=== PATIENT | female | born 1980 | race Caucasian/White ===

== ENCOUNTER 2017-11-01 19:36 | Emergency (ER) | payer SELFPAY | END 2017-11-01 21:29 | disposition left against medical advice (07) | LOC: ERS 19:36 | DX: Z53.21 Procedure and treatment not carried out due to patient leaving prior to being seen by health care provider (principal) ==

== ENCOUNTER 2017-11-14 11:02 | Emergency (ER) | payer SELFPAY | END 2017-11-14 12:06 | disposition home or self-care (01) | LOC: ERS 11:02 | DX: L30.9 Dermatitis, unspecified (principal); J45.909 Unspecified asthma, uncomplicated; F17.210 Nicotine dependence, cigarettes, uncomplicated | CPT/HCPCS: 99282 ==

== ENCOUNTER 2019-08-31 09:31 | Emergency (ER) | payer SELFPAY | END 2019-08-31 18:34 | disposition home or self-care (01) | LOC: ERS 09:31 | DX: M72.2 Plantar fascial fibromatosis (principal); J45.909 Unspecified asthma, uncomplicated; F17.210 Nicotine dependence, cigarettes, uncomplicated | CPT/HCPCS: 99283 ==

== ENCOUNTER 2019-09-24 20:49 | Emergency (ER) | payer SELFPAY ==
[2019-09-24] MEDS ORDERED: predniSONE 20 MG TAB ONE (21:50)
== END 2019-09-24 23:08 | disposition home or self-care (01) ==
LOC: ERS 20:49
DX: J45.901 Unspecified asthma with (acute) exacerbation (principal); F17.210 Nicotine dependence, cigarettes, uncomplicated
CPT/HCPCS: J7512; J7620